=== PATIENT | female | born 2000 | race Caucasian/White ===

== ENCOUNTER 2024-11-28 19:27 | Inpatient (IN) | payer BC, OTHER ==
[2024-11-28 19:56] LABS: Glucose, Urine (Dipstick) Normal (Negative); Leukocyte Negative (Negative); Protein, Urine (Dipstick) Negative (Neg-Trace); Specific Gravity, Urine 1.005 (1.005-1.030)
[2024-11-28 20:11] LABS: #Basophils Less than 0.03 10x3/uL (0.0-0.2); #Eosinophils 0.09 10x3/uL (0.0-0.5); #Monocytes 0.88 10x3/uL (0.0-1.1); #Neutrophils 8.05 10x3/uL (1.5-8.4); %Basophils 0.1 % (0.0-2.0); %Eosinophils 0.8 % (0.0-6.0); %Lymphocytes 22.3 % (18.0-47.0); %Monocytes 7.5 % (0.0-10.0); %Neutrophils 69.0 % (40.0-75.0); Hematocrit 41.8 % (34.9-44.5); Hemoglobin 14.4 g/dL (12.0-15.5); Mean Corpuscular Hemoglobin 30.0 pg (27.0-33.0); Mean Corpuscular Volume 87.1 fL (81.6-98.3); Platelet Count 306 10x3/uL (150-450); Red Blood Cell (RBC) Count 4.80 10x6/uL (3.90-5.03); White Blood Cell (WBC) Count 11.66 10x3/uL (3.5-10.5)
[2024-11-28 20:15] LABS: Bacteria/HPF 2+ HPF (None Seen); CAUTI Indications for Culture Pelvic or flank pain; RBC/HPF None Seen HPF (0-3); Urine Culture Reflex No No; WBC/HPF 0-3 HPF (0-3)
[2024-11-28] MEDS ORDERED: Prochlorperazine 10 MG/2 ML VIAL ONE (20:15)
[2024-11-28] MEDS ORDERED: diphenhydrAMINE 50 MG/ML VIAL ONE (20:15)
[2024-11-28] MEDS ORDERED: Ketorolac Tromethamine 30 MG (1 mL) VIAL ONE (20:16)
[2024-11-28 20:24] LABS: BHCG - Serum Negative (NEGATIVE); Pregs Control Background? CLEAR/WHITE (CLR/WHITE); Pregs Control Bar Appear? YES (CONTROL BAR)
[2024-11-28 20:25] LABS: ALT (SGPT) 19 U/L (Less than 34); AST (SGOT) 24 U/L (11-34); Albumin 4.6 g/dL (3.1-4.5); Alkaline Phosphatase 61 U/L (40-110); Anion Gap 13 mmol/L (10-20); BUN (Urea Nitrogen) 14 mg/dL (7.0-18.7); Bilirubin, Total 0.3 mg/dL (0.3-1.2); Calc. Creatinine Clearance 0 mL/min (70-130); Calcium 10.8 mg/dL (7.8-10.44); Carbon Dioxide 26 mmol/L (22-29); Chloride 103 mmol/L (98-107); Globulin 3.1 g/dL (2.4-3.5); Glucose 94 mg/dL (70-105); Potassium 3.7 mmol/L (3.5-5.1); Sodium 138 mmol/L (136-145)
[2024-11-28] MEDS ORDERED: Ondansetron PF 4 MG/2 ML Vial IVP PRN (23:04)
[2024-11-28] MEDS ORDERED: Acetaminophen 325 MG TAB PO PRN (23:08)
[2024-11-29 00:46] VITALS: BMI 25.4
[2024-11-29] MEDS ORDERED: Dextrose 50% Abboject 50 ML SYRINGE SLOW IVP PRN (06:46)
[2024-11-29] MEDS ORDERED: Ondansetron PF 4 MG/2 ML Vial IVP PRN (06:46)
[2024-11-29] MEDS ORDERED: Glucagon 1 MG/ML KIT IM PRN (06:46)
[2024-11-29] MEDS ORDERED: PROPOFOL 40 ML ONE (09:00)
[2024-11-29] MEDS ORDERED: Lidocaine 1% PF 5 ML VIAL ONE (09:00)
[2024-11-29] MEDS ORDERED: SUGAMMADEX SODIUM 200 MG/2 ML VIAL ONE (09:00)
[2024-11-29] MEDS ORDERED: Ondansetron PF 4 MG/2 ML Vial ONE ×2 (09:00→12:11)
[2024-11-29] MEDS ORDERED: Rocuronium Bromide 10 MG/ML (10ML VIAL) ONE (09:00)
[2024-11-29] MEDS ORDERED: Scopolamine 1 mg/72 hour Patch ONE (09:51)
[2024-11-29] MEDS ORDERED: Bupivacaine HCl 0.5%/Epinephrine 1:200,000/PF 30 ml Vial ONE (09:57)
[2024-11-29] MEDS ORDERED: Famotidine/PF 20 mg/2ml Vial ONE (10:00)
[2024-11-29] MEDS: Spironolactone 25 MG TAB PO SCH (10:15)
[2024-11-29] MEDS ORDERED: CEFAZOLIN 2 GM VIAL ONE (10:26)
[2024-11-29] MEDS ORDERED: Ketorolac Tromethamine 30 MG (1 mL) VIAL ONE (12:01)
[2024-11-29] MEDS ORDERED: Acetaminophen 325 MG TAB PO PRN (12:11)
[2024-11-29] MEDS ORDERED: diphenhydrAMINE 50 MG/ML VIAL IVP PRN (12:11)
[2024-11-29] MEDS ORDERED: HYDROcodone/Acetaminophen 5/325 mg Tablet PO PRN ×2 (12:11)
[2024-11-29 16:00] VITALS: BP 120/65; TEMP 98.5
== END 2024-11-29 15:45 | disposition home or self-care (01) | DRG 399 ==
LOC: CSHERS 19:27 → CSHTELE 21:31
PROVIDERS: ADMIT Surgery; ATTEND Surgery
PROC: 0DTJ4ZZ Resection of Appendix, Percutaneous Endoscopic Approach (ICD-10-PCS; principal; 2024-11-29)
PROC: 3E03329 Introduction of Other Anti-infective into Peripheral Vein, Percutaneous Approach (ICD-10-PCS; 2024-11-29)
DX: K35.80 Unspecified acute appendicitis (principal); K59.00 Constipation, unspecified; Z79.899 Other long term (current) drug therapy
CPT/HCPCS: 74176; 80053; 81001; 84703; 85025; 88304; 96365; 96367; 96375; A4649; J0780; J1100; J1200; J1885; J2250; J2543; J2550; J2704; J7030; J7042